=== PATIENT | male | born 1985 | race Caucasian/White ===

== ENCOUNTER 2017-06-11 11:16 | Emergency (ER) | payer OTHER ==
--- NOTE | 2017-06-11 12:13 | ED Physician Documentation ---
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 Had it last night and woke this AM with numbness throughout the left arm. Mild neck pain. Review of Systems Constitutional: denies: Fever, Chills Nose: denies: Rhinorrhea / runny nose, Congestion Throat: denies: Sore throat Cardiac: denies: Chest pain / pressure, Palpitations Respiratory: denies: Dyspnea PD PAST MEDICAL HISTORY - Past Medical History Past Medical History: No - Past Surgical History Past Surgical History: Yes General: Other - Present Medications Home Medications: Ambulatory Orders Medication Instructions Recorded Confirmed predniSONE [Deltasone] 20 mg PO [id number] #21 tab 06/11/17 - Allergies Allergies/Adverse Reactions: Allergies Allergy/AdvReac Type Severity Reaction Status Date / Time No Known Drug Allergies Allergy Verified 06/11/17 11:28 - Social History Does the pt smoke?: Yes Smoking Status: Current every day smoker Does the pt drink ETOH?: No Does the pt have substance abuse?: No - Immunizations Immunizations are current?: Yes - POLST Patient has POLST: No PD ED PE NORMAL - Vitals Vital signs reviewed: Yes - General General: Alert and oriented X 3, No acute distress - Derm Derm: Normal color, Warm and dry, No rash - Extremities Extremities: Other (He has diminished sharp versus dull discrimination throughout the left forearm especially on the medial side. Tobacco Cutter strength is equal as is wrist flexion, interosseous strength, and thumb extension. He does have weakness in wrist extension on the left. He has a mildly weak left coracobrachialis reflex, but the tricep and bicep reflexes are symmetric.) - Neuro Neuro: Alert and oriented X 3, Normal speech - Psych Psych: Normal mood, Normal affect Results - Vitals Vitals: Vital Signs - 24 hr 06/11/17 11:25 Temperature 36.1 C L Heart Rate 61 Respiratory 17 Rate Blood Pressure 130/74 O2 Saturation 98 Oxygen O2 Source Room air PD MEDICAL DECISION MAKING - ED course ED course: 31-year-old gentleman with classic history and physical findings of a cervical radiculopathy on the left, he will be placed on steroids and follow-up with his physician for further evaluation and treatment. Departure - Departure Disposition: 01 Home, Self Care Clinical Impression: Cervical radiculopathy Condition: Good Record reviewed to determine appropriate education?: Yes Instructions: ED Cervical Radiculopathy Prescriptions: predniSONE [Deltasone] 20 mg PO [id number] #21 tab Comments: Call your doctor to arrange a follow-up appointment, make the next available appointment. In the interim, return anytime if worse or if new symptoms develop.
[2017-06-11 12:38] VITALS: BP 120/75
== END 2017-06-11 12:37 | disposition home or self-care (01) ==
LOC: ED 11:16
DX: M54.12 Radiculopathy, cervical region (principal); F17.200 Nicotine dependence, unspecified, uncomplicated
CPT/HCPCS: 99282; 99283

== ENCOUNTER 2017-07-09 08:28 | Emergency (ER) | payer OTHER ==
[2017-07-09] MEDS ORDERED: ONDANSETRON 4 MG/2 ML VIAL IVP STA (08:40)
[2017-07-09] MEDS ORDERED: SODIUM CHLORIDE 0.9% 1,000 ML IV ONE (08:40)
--- NOTE | 2017-07-09 08:47 | ED Physician Documentation ---
PD HPI ABD PAIN - Stated complaint Stated Complaint: VOMITTING/ABD PX - Chief complaint Chief Complaint: Abd Pain - History obtained from History obtained from: Patient - History of Present Illness Timing - onset: How many hours ago (3) Timing - details: Still present Quality: Aching Location: Epigastric Improved by: Eating Associated symptoms: Nausea, Vomiting. No: Fever, Diarrhea, Dysuria Similar symptoms before: Has not had sx before - Additional information Additional information: The patient is an otherwise healthy 31-year-old male who presents with epigastric abdominal pain and vomiting. His symptoms started about 3 hours prior to arrival, after eating sushi that was left over from his meal last night. He denies fever, diarrhea, or dysuria. He denies history of similar symptoms in the past. He has had no abdominal surgery. Review of Systems Constitutional: denies: Fever Ears: denies: Tinnitus/ringing Nose: denies: Congestion Throat: denies: Sore throat Cardiac: denies: Chest pain / pressure Respiratory: denies: Dyspnea, Cough GI: reports: Abdominal Pain, Nausea, Vomiting. denies: Diarrhea : denies: Dysuria Skin: denies: Rash Musculoskeletal: denies: Back pain Neurologic: denies: Focal weakness, Numbness, Headache PD PAST MEDICAL HISTORY - Past Medical History Past Medical History: No Cardiovascular: None Respiratory: None Neuro: None Endocrine/Autoimmune: None - Past Surgical History Past Surgical History: No General: Other - Present Medications Home Medications: Ambulatory Orders Medication Instructions Recorded Confirmed Promethazine [Phenergan] 25 - 50 mg PO Q6H PRN #10 tab 07/09/17 - Allergies Allergies/Adverse Reactions: Allergies Allergy/AdvReac Type Severity Reaction Status Date / Time No Known Drug Allergies Allergy Verified 06/11/17 11:28 - Social History Does the pt smoke?: No Smoking Status: Never smoker Does the pt drink ETOH?: No Does the pt have substance abuse?: No - Immunizations Immunizations are current?: Yes - POLST Patient has POLST: No PD ED PE NORMAL - Vitals Vital signs reviewed: Yes - General General: Alert and oriented X 3, Well developed/nourished - HEENT HEENT: Atraumatic, EOMI, Moist mucous membranes - Neck Neck: Supple, no meningeal sign, No adenopathy - Cardiac Cardiac: RRR, No murmur - Respiratory Respiratory: No respiratory distress, Clear bilaterally - Abdomen Abdomen: Normal bowel sounds, Soft, No organomegaly, Other (Epigastric tenderness to palpation, without rebound tenderness or guarding.) - Back Back: No CVA TTP - Derm Derm: No rash - Extremities Extremities: No edema, No calf tenderness / cord - Neuro Neuro: Alert and oriented X 3, No motor deficit, Normal speech Results - Vitals Vitals: Oxygen O2 Source Room air - Labs Labs: Laboratory Tests 07/09/17 07/09/17 07/09/17 08:53 08:53 09:10 WBC 6.8 RBC 4.90 Hgb 13.5 L Hct 40.7 L MCV 82.9 MCH 27.6 MCHC 33.3 RDW 12.2 Plt Count 166 MPV 9.9 Neut # 3.0 Lymph # 2.6 [place] # 0.5 Eos # 0.5 Baso # 0.1 Absolute Nucleated RBC 0.01 Nucleated RBCs 0.1 Sodium 138 Potassium 3.6 Chloride 101 Carbon Dioxide 29 Anion Gap 8.0 BUN 14 Creatinine 0.9 Estimated GFR (MDRD) 98 Glucose 107 H Calcium 9.1 Total Bilirubin 0.7 AST 27 ALT 29 Alkaline Phosphatase 54 Total Protein 7.1 Albumin 4.6 Globulin 2.5 Albumin/Globulin Ratio 1.8 Lipase 33 Urine Color YELLOW Urine Clarity CLEAR Urine pH 6.0 Ur Specific [place] 1.025 Urine Protein NEGATIVE Urine Glucose (UA) NEGATIVE Urine Ketones NEGATIVE Urine Occult Blood NEGATIVE Urine Nitrite NEGATIVE Urine Bilirubin NEGATIVE Urine Urobilinogen 0.2 (NORMAL) Ur Leukocyte Esterase NEGATIVE Ur Microscopic Review NOT INDICATED Urine Culture Comments NOT INDICATED PD MEDICAL DECISION MAKING - ED course Complexity details: reviewed results, re-evaluated patient, considered differential, d/w patient ED course: The patient's presentation is most consistent with food poisoning with associated vomiting. CBC and chemistry panel are unremarkable. There is no clinical evidence to suggest acute surgical abdomen, or invasive gastroenteritis. Treatment in the emergency department included administration of normal saline 1 L IV, and ondansetron 4 mg IV. He had no further vomiting while in the emergency department, and demonstrated the ability to drink fluids without recurrent nausea. He is being discharged with a prescription for Phenergan. I discussed with him the expected course of illness, symptomatic treatment and outpatient follow-up, as well as potentially worrisome signs or symptoms that should prompt reevaluation is needed emergency department. Departure - Departure Disposition: Home, Self Care Clinical Impression: Vomiting Qualifiers: Vomiting type: unspecified Vomiting Intractability: non-intractable Nausea presence: with nausea Qualified Code(s): R11.2 - Nausea with vomiting, unspecified Food poisoning Qualifiers: Encounter type: initial encounter Injury intent: accidental or unintentional Qualified Code(s): T62.91XA - Toxic effect of unspecified noxious substance eaten as food, accidental (unintentional), initial encounter Condition: Stable Instructions: ED Gastroenteritis Vs Food Poison Follow-Up: KENNY Gray [Provider Group] Prescriptions: Promethazine [Phenergan] 25 - 50 mg PO Q6H PRN #10 tab PRN Reason: Nausea / Vomiting Comments: Drink plenty of fluids. You can use Phenergan as prescribed if needed for nausea. Eat only light, easily digestible foods today. Return to the emergency department if you develop increasing abdominal pain, persistent vomiting, or otherwise worsening symptoms. Forms: Activity restrictions Discharge Date/Time: 07/09/17 10:04
[2017-07-09] MEDS ORDERED: ONDANSETRON 4 MG/2 ML VIAL ONE (09:06)
[2017-07-09 09:09] LABS: BASOPHILS # (AUTO) 0.1 10^3/uL (0.0-0.1); BASOPHILS % (AUTO) 1.4 %; EOSINOPHILS # (AUTO) 0.5 10^3/uL (0.0-0.7); EOSINOPHILS % (AUTO) 7.5 %; HCT - HEMATOCRIT 40.7 % (42.0-52.0); HGB - HEMOGLOBIN 13.5 g/dL (14.0-18.0); LYMPHOCYTES # (AUTO) 2.6 10^3/uL (1.5-3.5); LYMPHOCYTES % (AUTO) 38.5 %; MEAN CORPUSCULAR HEMOGLOBIN 27.6 pg (27.0-31.0); MEAN CORPUSCULAR HGB CONC 33.3 g/dL (32.0-36.0); MEAN CORPUSCULAR VOLUME 82.9 fL (80.0-94.0); MEAN PLATELET VOLUME 9.9 fL (7.4-11.4); MONOCYTES # (AUTO) 0.5 10^3/uL (0.0-1.0); MONOCYTES % (AUTO) 7.7 %; NEUTROPHILS % (AUTO) 44.9 %; NUCLEATED RED BLOOD CELLS AUTO 0.1 /100WBC; RED CELL DISTRIBUTION WIDTH 12.2 % (12.0-15.0); UNCORRECTED WHITE BLOOD COUNT 6.8 x10^3/uL; WHITE BLOOD COUNT 6.8 x10^3/uL (4.8-10.8)
[2017-07-09 09:18] LABS: BILIRUBIN,URINE NEGATIVE (NEGATIVE)
[2017-07-09 09:18] LABS: ALBUMIN/GLOBULIN RATIO 1.8 (1.0-2.2); BILIRUBIN,TOTAL 0.7 mg/dL (0.2-1.0); CALCIUM 9.1 mg/dL (8.5-10.3); CREATININE 0.9 mg/dL (0.6-1.2); POTASSIUM 3.6 mmol/L (3.5-5.0); TOTAL PROTEIN 7.1 g/dL (6.7-8.2)
[2017-07-09 09:20] LABS: UA CHARGE (STRIP ONLY) YES; UR CULTURE IF IND NOT INDICATED
[2017-07-09 09:35] VITALS: BP 117/63
== END 2017-07-09 10:04 | disposition home or self-care (01) ==
LOC: ED 08:28
DX: T62.91XA Toxic effect of unspecified noxious substance eaten as food, accidental (unintentional), initial encounter (principal); R11.2 Nausea with vomiting, unspecified; Y92.019 Unspecified place in single-family (private) house as the place of occurrence of the external cause
CPT/HCPCS: 36415; 80053; 81001; 81003; 83690; 85025; 87086; 96374; 99283

== ENCOUNTER 2017-08-29 08:05 | Emergency (ER) | payer OTHER ==
[2017-08-29 08:24] VITALS: BP 112/70
--- NOTE | 2017-08-29 08:37 | ED Physician Documentation ---
PD HPI URI - Stated complaint Stated Complaint: BODY ACHE,LEDEZMA - Chief complaint Chief Complaint: Resp - History obtained from History obtained from: Patient - History of Present Illness Timing - onset: Today Timing details: Abrupt onset, Still present Associated symptoms: Fever, Chills, Nasal congestion, Dry cough, NVD Contributing factors: No: Sick contact, Travel, Immunocompromised Similar symptoms before: Has not had sx before Recently seen: Not recently seen (here largely for work note since feeling so ill.) Review of Systems Constitutional: reports: Fever, Chills, Myalgias Nose: reports: Rhinorrhea / runny nose, Sinus pressure / pain Respiratory: reports: Cough GI: reports: Nausea, Diarrhea. denies: Vomiting : denies: Dysuria, Frequency Skin: denies: Rash PD PAST MEDICAL HISTORY - Past Medical History Cardiovascular: None Respiratory: None Neuro: None Endocrine/Autoimmune: None - Past Surgical History Past Surgical History: Yes General: Other - Present Medications Home Medications: Ambulatory Orders Medication Instructions Recorded Confirmed Benzonatate [Tessalon] 100 mg PO TID PRN #25 capsule 08/29/17 Dexamethasone [Decadron] 4 mg PO DAILY #5 tablet 08/29/17 Ondansetron Odt [Zofran] 4 mg TL Q6H PRN #15 tablet 08/29/17 - Allergies Allergies/Adverse Reactions: Allergies Allergy/AdvReac Type Severity Reaction Status Date / Time No Known Drug Allergies Allergy Verified 08/29/17 08:24 - Social History Does the pt smoke?: Yes Smoking Status: Current every day smoker Does the pt drink ETOH?: No Does the pt have substance abuse?: No - Immunizations Immunizations are current?: Yes - POLST Patient has POLST: No PD ED PE NORMAL - Vitals Vital signs reviewed: Yes - General General: Alert and oriented X 3, No acute distress, Well developed/nourished - HEENT HEENT: Pharynx benign - Neck Neck: Supple, no meningeal sign, No adenopathy - Cardiac Cardiac: RRR, No murmur - Respiratory Respiratory: Clear bilaterally - Abdomen Abdomen: Soft, Non tender - Back Back: No CVA TTP - Derm Derm: Normal color, Warm and dry - Neuro Neuro: Alert and oriented X 3, No motor deficit, Normal speech Results - Vitals Vitals: Vital Signs - 24 hr 08/29/17 08:21 Temperature 36.8 C Heart Rate 73 Respiratory 16 Rate Blood Pressure 112/70 O2 Saturation 99 Oxygen O2 Source Room air - Labs Labs: Laboratory Tests 08/29/17 08:53 Influenza A (Rapid) Negative Influenza B (Rapid) Negative Influenza Types A,B Ag - PD MEDICAL DECISION MAKING - ED course Complexity details: considered differential, d/w patient Departure - Departure Disposition: 01 Home, Self Care Clinical Impression: Flu-like symptoms Condition: Stable Record reviewed to determine appropriate education?: Yes Instructions: ED Viral Syndrome Follow-Up: KENNY Gray [Provider Group] Prescriptions: Benzonatate [Tessalon] 100 mg PO TID PRN #25 capsule PRN Reason: Cough Dexamethasone [Decadron] 4 mg PO DAILY #5 tablet Ondansetron Odt [Zofran] 4 mg TL Q6H PRN #15 tablet PRN Reason: Nausea / Vomiting Comments: Drink lots of fluids. Rest at home. Tylenol or ibuprofen if needed for fevers or aches. Ondansetron for nausea if needed. Use Decadron daily for several days to help reduce inflammation and some of the symptoms. Tessalon if needed for cough. Off work for a few days. Recheck if not better over the next several days though you will probably will have some cough and illness for a week or so. Forms: Activity restrictions Discharge Date/Time: 08/29/17 10:21
[2017-08-29] MEDS ORDERED: ONDANSETRON ODT 4 MG TABLET TL STA (08:55)
[2017-08-29] MEDS ORDERED: DEXAMETHASONE 10 MG/ML VIAL PO STA (08:56)
[2017-08-29] MEDS ORDERED: DEXAMETHASONE 10 MG/ML VIAL ONE (09:17)
[2017-08-29] MEDS ORDERED: CHERRY SYRUP 10 ML UDC PO ONE (09:17)
[2017-08-29] MEDS ORDERED: ONDANSETRON ODT 4 MG TABLET ONE (09:17)
== END 2017-08-29 10:21 | disposition home or self-care (01) ==
LOC: ED 08:05
DX: R51 Headache (principal); R50.9 Fever, unspecified; R09.81 Nasal congestion; F17.200 Nicotine dependence, unspecified, uncomplicated
CPT/HCPCS: 87275; 87276; 99283; A9270; Q0162

== ENCOUNTER 2017-10-07 08:34 | Emergency (ER) | payer OTHER ==
[2017-10-07 08:41] VITALS: BP 132/81
[2017-10-07] MEDS ORDERED: ONDANSETRON ODT 4 MG TABLET TL STA (09:17)
--- NOTE | 2017-10-07 09:20 | ED Physician Documentation ---
History of Present Illness - Stated complaint Stated Complaint: FLU LIKE SX - Chief complaint Chief Complaint: General - Additonal information Additional information: hx from pt healthy immunized (including flu shot) AD [place] male numerous sick contacts to ER with fever cough body aches [place] congestion tried to take some meds his was rxed for similar sx but [place] to [place] Review of Systems Constitutional: reports: Fever, Chills, Myalgias Nose: reports: Congestion Respiratory: reports: Cough GI: reports: Vomiting Immunocompromised: reports: Immunocompromised PD PAST MEDICAL HISTORY - Past Medical History Past Medical History: No Cardiovascular: None Respiratory: None Neuro: None Endocrine/Autoimmune: None - Past Surgical History Past Surgical History: Yes General: Other - Present Medications Home Medications: Ambulatory Orders Medication Instructions Recorded Confirmed Benzonatate [Tessalon] 100 mg PO TID PRN #25 capsule 08/29/17 Dexamethasone [Decadron] 4 mg PO DAILY #5 tablet 08/29/17 Ondansetron Odt [Zofran] 4 mg TL Q6H PRN #15 tablet 08/29/17 Benzonatate [Tessalon] 100 mg PO TID PRN #20 capsule 10/07/17 Fluticasone [Flonase] 1 sprays KENNY BID PRN #1 bottle 10/07/17 Ondansetron Odt [Zofran] 4 mg TL Q6H PRN #10 tablet 10/07/17 guaiFENesin/DEXTROMETHORPHAN 10 ml PO Q6H PRN #120 ml 10/07/17 [Robitussin Dm] - Allergies Allergies/Adverse Reactions: Allergies Allergy/AdvReac Type Severity Reaction Status Date / Time No Known Drug Allergies Allergy Verified 08/29/17 08:24 - Social History Does the pt smoke?: Yes Smoking Status: Current every day smoker Does the pt drink ETOH?: No Does the pt have substance abuse?: No - Immunizations Immunizations are current?: Yes - POLST Patient has POLST: No PD ED PE NORMAL - Vitals Vital signs reviewed: Yes - General General: Alert and oriented X 3 - HEENT HEENT: Ears normal, Moist mucous membranes. No: Pharynx benign (erythema from coughing no swelling or exudate) - Neck Neck: Supple, no meningeal sign - Cardiac Cardiac: RRR - Respiratory Respiratory: No respiratory distress, Clear bilaterally - Abdomen Abdomen: Soft, Non tender - Derm Derm: Normal color - Extremities Extremities: No edema - Neuro Neuro: Alert and oriented X 3 Results - Vitals Vitals: Vital Signs - 24 hr 10/07/17 08:38 Heart Rate 81 Respiratory 14 Rate Blood Pressure 132/81 H O2 Saturation 98 Oxygen O2 Source Room air - Rads (name of study) CXR Radiology: See rad report (neg) Departure - Departure Disposition: 01 Home, Self Care Clinical Impression: Viral syndrome Condition: Good Instructions: ED Viral Syndrome Follow-Up: KENNY Davin Gray [Provider Group] Prescriptions: Benzonatate [Tessalon] 100 mg PO TID PRN #20 capsule PRN Reason: to ease cough Fluticasone [Flonase] 1 sprays KENNY BID PRN #1 bottle PRN Reason: congestion guaiFENesin/DEXTROMETHORPHAN [Robitussin Dm] 10 ml PO Q6H PRN #120 ml PRN Reason: Cough Ondansetron Odt [Zofran] 4 mg TL Q6H PRN #10 tablet PRN Reason: Nausea / Vomiting Comments: The xray is fine - no pneumonia On exam it does not look like you have an ear infection or strep throat. This is likely a viral infection. That does not make you any less sick but means antibiotics won't help. But I did write you your own prescriptions for medications melanie ease the symptoms and a note for work Also may take motrin and tylenol for fever and body aches - rest - drink plenty of fluids Forms: Activity restrictions
--- NOTE | 2017-10-07 09:41 | XRAY Preliminary Report ---
Exam: XR CHEST 2 VIEW PA/LAT IMPRESSION: Normal 2-view chest radiography. [facility] SITE ID: [id number]
--- NOTE | 2017-10-07 09:44 | XRAY Report ---
EXAM: CHEST RADIOGRAPHY EXAM DATE: 10/07/2017 09:30 AM. CLINICAL HISTORY: Fever cough. COMPARISON: None. TECHNIQUE: 2 views. FINDINGS: Lungs/Pleura: No focal opacities evident. No pleural effusion. No pneumothorax. Normal volumes. Mediastinum: Heart and mediastinal contours are unremarkable. Other: None. IMPRESSION: Normal 2-view chest radiography. [facility] Referring Provider Line: [phone] SITE ID: [id number]
== END 2017-10-07 10:06 | disposition home or self-care (01) ==
LOC: ED 08:34
DX: B34.9 Viral infection, unspecified (principal); F17.200 Nicotine dependence, unspecified, uncomplicated
CPT/HCPCS: 71020; 99283; Q0162

== ENCOUNTER 2017-10-31 06:31 | Emergency (ER) | payer OTHER ==
[2017-10-31 06:45] VITALS: BP 116/71
--- NOTE | 2017-10-31 07:04 | ED Physician Documentation ---
PD HPI URI - Stated complaint Stated Complaint: N/V FEVER - Chief complaint Chief Complaint: Heent - History obtained from History obtained from: Patient - History of Present Illness Timing - onset: Today, Last night Timing details: Gradual onset, Still present Associated symptoms: Fever, Chills, Nasal congestion, Sore throat, Dry cough. No: Dyspnea, NVD, Bilateral edema Contributing factors: Sick contact (coworkers with similar symptoms.) Similar symptoms before: Has not had sx before Recently seen: Not recently seen Review of Systems Constitutional: reports: Fever, Chills, Myalgias Eyes: denies: Photophobia Ears: denies: Loss of hearing, Ear pain Nose: reports: Congestion. denies: Rhinorrhea / runny nose Throat: reports: Sore throat Cardiac: reports: Chest pain / pressure, Other (scratchy) Respiratory: reports: Dyspnea, Cough GI: denies: Nausea, Vomiting, Diarrhea : denies: Dysuria, Frequency Skin: denies: Rash, Lesions Neurologic: reports: Generalized weakness. denies: Focal weakness, Numbness PD PAST MEDICAL HISTORY - Past Medical History Past Medical History: No Cardiovascular: None Respiratory: None Neuro: None Endocrine/Autoimmune: None GI: None : None HEENT: None Psych: None Musculoskeletal: None Derm: None - Past Surgical History Past Surgical History: Yes General: Other - Present Medications Home Medications: Ambulatory Orders Medication Instructions Recorded Confirmed Albuterol Sulf [Ventolin Hfa 1 - 2 puffs INH Q4HR PRN #1 inhaler 10/31/17 Inhaler] Dexamethasone [Decadron] 4 mg PO DAILY #5 tablet 10/31/17 Ondansetron Odt [Zofran] 4 mg TL Q6H PRN #15 tablet 10/31/17 - Allergies Allergies/Adverse Reactions: Allergies Allergy/AdvReac Type Severity Reaction Status Date / Time No Known Drug Allergies Allergy Verified 10/31/17 06:45 - Social History Does the pt smoke?: Yes Smoking Status: Current every day smoker Does the pt drink ETOH?: No Does the pt have substance abuse?: No - Immunizations Immunizations are current?: Yes - POLST Patient has POLST: No PD ED PE NORMAL - Vitals Vital signs reviewed: Yes - General General: Alert and oriented X 3, No acute distress, Well developed/nourished - HEENT HEENT: Ears normal, Moist mucous membranes, Pharynx benign - Neck Neck: Supple, no meningeal sign, No adenopathy - Cardiac Cardiac: RRR, No murmur - Respiratory Respiratory: Clear bilaterally - Derm Derm: Normal color, Warm and dry - Neuro Neuro: Alert and oriented X 3, No motor deficit, Normal speech Results - Vitals Vitals: Vital Signs - 24 hr 10/31/17 06:43 Temperature 36.2 C L Heart Rate 65 Respiratory 17 Rate Blood Pressure 116/71 O2 Saturation 98 Oxygen O2 Source Room air - Labs Labs: Laboratory Tests 10/31/17 06:40 Group A Strep Rapid Negative PD MEDICAL DECISION MAKING - ED course Complexity details: considered differential (Does not look ill. Not workup much. ), d/w patient Departure - Departure Disposition: 01 Home, Self Care Clinical Impression: Flu-like symptoms Condition: Stable Record reviewed to determine appropriate education?: Yes Instructions: ED Viral Syndrome Follow-Up: KENNY Gray [Provider Group] Prescriptions: Albuterol Sulf [Ventolin Hfa Inhaler] 1 - 2 puffs INH Q4HR PRN #1 inhaler PRN Reason: Shortness Of Air/Wheezing Dexamethasone [Decadron] 4 mg PO DAILY #5 tablet Ondansetron Odt [Zofran] 4 mg TL Q6H PRN #15 tablet PRN Reason: Nausea / Vomiting Comments: Drink lots of fluids and use Tylenol or Ibuprofen as needed for fevers/aches. Zofran if needed for nausea. Albuterol 2 puffs 4 times daily as needed for cough /trouble breathing. Decadron anti-inflammatory can help with symptoms. Off work for couple of days. Recheck if not improving over the next few days. Forms: Activity restrictions Discharge Date/Time: 10/31/17 07:34
[2017-10-31] MEDS ORDERED: ONDANSETRON ODT 4 MG TABLET TL STA (07:20)
[2017-10-31] MEDS ORDERED: DEXAMETHASONE 10 MG/ML VIAL PO STA (07:20)
== END 2017-10-31 07:34 | disposition home or self-care (01) ==
LOC: ED 06:31
DX: J11.1 Influenza due to unidentified influenza virus with other respiratory manifestations (principal); F17.200 Nicotine dependence, unspecified, uncomplicated
CPT/HCPCS: 87070; 87430; 99283; Q0162